=== PATIENT | male | born 1955 | race Caucasian/White ===

== ENCOUNTER 2017-05-29 12:20 | Outpatient (CLI) | payer OTHER ==
--- NOTE | 2017-05-29 15:58 | MRI ---
MRI CERVICAL SPINE WITH AND WITHOUT CONTRAST: 05/29/2017 HISTORY: Multiple sclerosis. COMPARISON: None. TECHNIQUE: Multiplanar, multisequence MR imaging of the cervical spine is provided with and without contrast. FINDINGS: There is a lobulated T2 hyperintense lesion to the left of the esophagus and posterior and to the lef t of the trachea, at the level of the thoracic inlet, measuring 2.6 x 1.6 cm. A thyroid lesion is laurent spected. A thyroid ultrasound is advised. There is extensive, incompletely assessed anterior diskectomy and fusion hardware involving the C4 th rough C7 levels. There is polypoid mucosal thickening within the maxillary sinuses, left greater than right. There is degenerative change at the atlantoaxial interspace with posterior degenerative pannus formation. C2-C3: Minimal anterolisthesis. Disk space narrowing and disk desiccation noted. No central canal stenosis. Bilateral facet hypertrophy noted with mild bilateral neural foraminal stenosis. C3-C4: There is disk space narrowing, disk desiccation, and disk bulge effacing the ventral thecal s ac and abutting the ventral aspect of the cord, with a mild to moderate degree of central canal steno sis. Facet and uncovertebral osteophyte formation noted bilaterally, with moderate-severe right neur al foraminal stenosis and a mild degree of left neural foraminal stenosis. C4-C5: Mild bilateral facet and uncovertebral osteophyte formation. Mild bilateral neural foraminal stenosis with no central canal stenosis. C5-C6: There is mild bilateral neural foraminal stenosis on the basis of facet and uncovertebral ost eophyte formation. No central canal stenosis. C6-C7: Mild bilateral uncovertebral osteophyte formation, left greater than right. No significant c entral canal stenosis. Mild bilateral neural foraminal stenosis. C7-T1: Mild bilateral facet hypertrophy. No significant central canal or neural foraminal stenosis. There is disk desiccation and mild disk bulge. There is a focal area of abnormal signal intensity identified within the cervical cord posteriorly an d just to the left of midline, at the C5-C6 level, measuring approximately 4 mm. Within the left lat eral aspect of the cervical cord, at this level, there is also a T2 hyperintense lesion measuring in the 2-3 mm range. No additional focal area of signal abnormality is identified within the cervical c ord. Sagittal STIR imaging demonstrates no focal area of osseous marrow edema. The post contrast imaging demonstrates no abnormal enhancement involving the intervertebral disks, th e imaged osseous structures, or the contents of the thecal sac. IMPRESSION: 1. There is multilevel postoperative and degenerative change within the cervical spine, as described above. 2. There are two foci of abnormal increased T2 signal within the cervical cord at C5-C6, consistent with the patient's provided history of demyelinating disease. 3. Lobulated T2 hyperintense lesion within the neck, on the left, likely of thyroid origin. Thyroid ultrasound advised. CODE T POS: [facility]
--- NOTE | 2017-05-29 16:00 | MRI ---
PRE AND POSTCONTRAST ENHANCED MRI IMAGES OF BRAIN 05/29/17 HISTORY: Evaluate for multiple sclerosis, G35. Multiplanar and multisequence pre and postcontrast enhanced MR images of the brain obtained. The laura ent received 19 mL of Multihance given IV. FINDINGS/IMPRESSION: Images demonstrate some frontal lobe cerebral atrophy. Some minimal deep white matter ischemic change s seen. No evidence of acute intracranial masses, hemorrhages, or strokes seen. No significant eviden ce of areas of diffusion restriction seen. No other significant intracranial abnormality seen. POS: [facility]
== END 2017-05-29 12:21 | disposition home or self-care (01) ==
LOC: SCSMRI 12:20
PROVIDERS: ATTEND Psychiatry & Neurology Neurology
DX: G35 Multiple sclerosis (principal); G31.9 Degenerative disease of nervous system, unspecified; M47.892 Other spondylosis, cervical region; M89.9 Disorder of bone, unspecified; Z98.890 Other specified postprocedural states
CPT/HCPCS: 70553; 72156; 82565

== ENCOUNTER 2017-06-24 10:31 | Outpatient (CLI) | payer MEDICARE, OTHER ==
--- NOTE | 2017-06-24 12:03 | ULT ---
THYROID ULTRASOUND: History: Thyroid nodule. FINDINGS: Real-time imaging of the right and left lobes of the thyroid were performed. The right lobe measures 1.2 x 1.8 x 4.8 cm. The left lobe 1.6 x 3.3 x 4.4 cm. Bilateral thyroid nodules are noted. Within the right lobe the largest nodule measures 2.2 cm in maximum dimension. It contains some calcification. Within the left lobe is a more complex 1.8 x 2.3 cm nodule. Other smaller nodules are seen. IMPRESSION: Multiple bilateral thyroid nodules. POS: [facility]
== END 2017-06-24 10:32 | disposition home or self-care (01) ==
LOC: SCSULT 10:31
PROVIDERS: ATTEND Psychiatry & Neurology Neurology
DX: E04.1 Nontoxic single thyroid nodule (principal); E04.2 Nontoxic multinodular goiter
CPT/HCPCS: 76536